=== PATIENT | female | born 1940 | race Caucasian/White ===

== ENCOUNTER 2022-04-15 09:07 | Outpatient (CLI) | payer MEDICARE, BC | END 2022-04-15 09:08 | disposition home or self-care (01) | LOC: CSHWCC 09:07 | PROVIDERS: ATTEND Nurse Practitioner Family | DX: I87.332 Chronic venous hypertension (idiopathic) with ulcer and inflammation of left lower extremity (principal); L97.822 Non-pressure chronic ulcer of other part of left lower leg with fat layer exposed; R60.0 Localized edema | CPT/HCPCS: 29581; 97139; G0463; 99204 ==

== ENCOUNTER 2022-05-08 10:48 | Outpatient (CLI) | payer MEDICARE, BC | END 2022-05-08 10:49 | disposition home or self-care (01) | LOC: CSHWCC 10:48 | PROVIDERS: ATTEND Preventive Medicine Undersea and Hyperbaric Medicine | DX: I87.333 Chronic venous hypertension (idiopathic) with ulcer and inflammation of bilateral lower extremity (principal); L97.822 Non-pressure chronic ulcer of other part of left lower leg with fat layer exposed; L97.812 Non-pressure chronic ulcer of other part of right lower leg with fat layer exposed; R60.0 Localized edema | CPT/HCPCS: 29581 ==

== ENCOUNTER 2022-06-01 14:36 | Outpatient (CLI) | payer MEDICARE, BC | END 2022-06-01 14:37 | disposition home or self-care (01) | LOC: CSHWCC 14:36 | PROVIDERS: ATTEND Preventive Medicine Undersea and Hyperbaric Medicine | DX: I87.333 Chronic venous hypertension (idiopathic) with ulcer and inflammation of bilateral lower extremity (principal); L97.812 Non-pressure chronic ulcer of other part of right lower leg with fat layer exposed; L97.822 Non-pressure chronic ulcer of other part of left lower leg with fat layer exposed; R60.0 Localized edema | CPT/HCPCS: 29581; 97139; G0463; 99213 ==

== ENCOUNTER 2022-06-15 10:38 | Outpatient (CLI) | payer MEDICARE, BC | END 2022-06-15 10:39 | disposition home or self-care (01) | LOC: CSHWCC 10:38 | PROVIDERS: ATTEND Nurse Practitioner Family | DX: I87.333 Chronic venous hypertension (idiopathic) with ulcer and inflammation of bilateral lower extremity (principal); L97.812 Non-pressure chronic ulcer of other part of right lower leg with fat layer exposed; L97.822 Non-pressure chronic ulcer of other part of left lower leg with fat layer exposed; R60.0 Localized edema | CPT/HCPCS: 29581; 97139; G0463; 99212 ==

== ENCOUNTER 2022-07-08 11:20 | Outpatient (CLI) | payer MEDICARE, BC | END 2022-07-08 11:21 | disposition home or self-care (01) | LOC: CSHWCC 11:20 | PROVIDERS: ATTEND Nurse Practitioner Family | DX: I87.333 Chronic venous hypertension (idiopathic) with ulcer and inflammation of bilateral lower extremity (principal); L97.822 Non-pressure chronic ulcer of other part of left lower leg with fat layer exposed; L97.812 Non-pressure chronic ulcer of other part of right lower leg with fat layer exposed; R60.0 Localized edema ==

== ENCOUNTER 2022-09-03 14:06 | Outpatient (CLI) | payer MEDICARE, BC | END 2022-09-03 14:07 | disposition home or self-care (01) | LOC: CSHMAMMO 14:06 | PROVIDERS: ATTEND Internal Medicine | DX: Z12.31 Encounter for screening mammogram for malignant neoplasm of breast (principal); Z90.11 Acquired absence of right breast and nipple; Z98.82 Breast implant status; Z85.3 Personal history of malignant neoplasm of breast | CPT/HCPCS: 77063; 77067 ==

== ENCOUNTER 2022-12-22 14:34 | Outpatient (CLI) | payer MEDICARE, BC, OTHER | END 2022-12-22 14:35 | disposition home or self-care (01) | LOC: CSHULT 14:34 | PROVIDERS: ATTEND Plastic Surgery | DX: Z08 Encounter for follow-up examination after completed treatment for malignant neoplasm (principal); T85.43XA Leakage of breast prosthesis and implant, initial encounter; Z85.3 Personal history of malignant neoplasm of breast ==